=== PATIENT | male | born 1965 | race Two or more races ===

== ENCOUNTER 2024-11-10 22:24 | Emergency (ER) | payer MEDICARE, OTHER ==
[~2024-11-10] VITALS: Ht 185.4 cm; Wt 106.0 kg
--- NOTE | 2024-11-10 23:15 | ED.PDOC ---
SOB-HPI HPI Comments Vitals: temperature of 98.4F, pulse rate of 70, respiratory rate of 20, blood pressure of 134/79, and a SpO2 of 97%RA. PMHx: denies PSHx: CABG, right knee and hip Sx HPI: Poor Historian. 59-year-old male presents to emergency department for evaluation of productive cough with bloody phlegm. This happened about 5 times a day. No significant blood loss. Patient is not on any blood thinners. Denies any other associated symptoms. Patient has been having a cough for about three weeks. He was evaluated for this at a different facility and they found everything normal with him. He is scheduled for a CT scan of the chest on the 12th of this month. REVIEW OF SYSTEMS: CONSTITUTIONAL: Denies acute: fever, diaphoresis, chills, generalized weakness. HEAD: Denies acute: headache, photophobia Eyes: Denies acute: Double vision, vision loss, eye pain, eye discharge. EARS: Denies acute: tinnitus, hearing loss, ear discharge, ear pain, THROAT: Denies acute: sore throat, swelling, difficulty swallowing , pain with swallowing, change in voice. NECK: Denies acute: neck pain, neck swelling, stiff neck. HEART: Denies acute : chest pain, palpitations, LUNGS: Denies acute: SOB, wheezing, ABDOMEN: Denies acute: abdominal pain, Nausea, Vomiting, diarrhea, melena , hematemesis, hematochezia SKIN: Denies acute: rash, redness, lesions, itchiness. EXTREMITIES: Denies acute: calf pain, numbness, tingling, weakness, denies pain in extremity. Denies acute: Low back pain. Neuro: Denies acute: focal neurological deficit, motor or sensory focal neurological deficit, tremors, seizure like activity, confusion, dizziness, change in mental status, loss of bowel or bladder function, cauda equina like symptoms. : Denies acute: dysuria, hematuria, flank pain, increase in urinary frequency. PSYCH: Denies acute: hallucination, suicidal ideation, homicidal ideation. PHYSICAL EXAM: General: no acute distress, awake and alert. Head: normocephalic, atraumatic. Neck: supple, trachea is midline, no swelling. Throat: Normal phonation. No evidence of bleeding in the posterior pharynx. No obstruction, no erythema, no exudates, no swelling. Eyes:, no erythema, no purulent discharge, no proptosis, no icterus. Heart: regular rate, regular rhythm, no significant murmur appreciated. Lungs: no apparent respiratory distress, Able to speak in full sentences. No wheezing, no rhonchi, no crackles. No stridors Clear to auscultation bilaterally. Abdomen: non tender to palpation, non distended, soft, no guarding, no rebound, + bowel sounds. Neuro: Awake, Alert, oriented to name, self, situation, follows commands GCS=15. Speech is normal. Skin: no petechia, no purpura, no cyanosis, non-pale, not jaundice. Lower extremities: --no - Pitting edema no deformity, no focal swelling, no calf TTP. Makes eye contact. moves all four extremities. Face: no apparent facial droop. Ambulating in the ED independently. Chief Complaint: Cough Time Seen by MD: 23:10 Reviewed notes: Nurses Notes, Medications, Allergies Information Source: Patient Mode of Arrival: Ambulatory Past Medical History PAST MEDICAL HISTORY: Denies Surgical History: CABG Surgical History (Other): right hip and knee Sx Family History Family History: Unknown Social History Smoker: Non-Smoker Alcohol: Denies ETOH Use Drugs: Denies Drug Use Lives In: Home Was a procedure done? Was a procedure done?: No Differential Dx Differential Diagnosis: Bronchitis, CHF, COPD, Myocardial infarction, Pneumonia, Pneumothorax, Pulmonary Embolism, URI, Other (Lung abscess, viral infection,) X-Ray, Labs, Meds, VS Vital Signs Date Time Temp Pulse Resp B/P (MAP) Pulse Ox O2 Delivery O2 Flow Rate FiO2 11/11/24 05:30 98.7 60 18 138/81 (100) 97 98.7 11/11/24 01:04 Room Air* 0 21 11/10/24 22:42 64 11/10/24 22:40 98.4 70 20 134/79 (97) 97 Lab Test 11/11/24 00:19 11/10/24 23:26 11/10/24 22:50 Range/Units D-Dimer, Quantitative 1.06 H 0.0-0.49 mg/L FEU Sodium Level 140 136-145 mmol/L Potassium Level 3.9 3.5-5.1 mmol/L Chloride Level 105 98-107 mmol/L Carbon Dioxide Level 25 20-31 mmol/L Anion Gap 10 5-15 Blood Urea Nitrogen 20 9-23 mg/dL Creatinine 1.40 H 0.700-1.30 mg/dL Glomerular Filtration Rate Calc 58 >90 mL/min BUN/Creatinine Ratio 14.3 10.0-20.0 Serum Glucose 95 74-106 mg/dL Calcium Level 10.2 8.7-10.4 mg/dL Total Bilirubin 0.4 0.2-1.0 mg/dL Aspartate Amino Transferase (AST) 16 13-40 U/L Alanine Aminotransferase (ALT) 21 7-40 U/L Alkaline Phosphatase 114 46-116 U/L Troponin I High Sensitivity 5 5 </=54 ng/L B-Type Natriuretic Peptide 66.18 0-100 pg/mL Total Protein 7.1 5.7-8.2 g/dL Albumin 4.3 3.2-4.8 g/dL White Blood Count 11.7 H 4.4-10.8 10^3/uL Red Blood Count 4.58 4.5-5.90 10^6/uL Hemoglobin 13.6 13.5-17.5 g/dL Hematocrit 41.1 41.0-53.0 % Mean Corpuscular Volume 89.7 80.0-100.0 fL Mean Corpuscular Hemoglobin 29.8 28.0-32.0 pg Mean Corpuscular Hemoglobin Concent 33.2 32.0-36.0 g/dL Red Cell Distribution Width 13.4 11.8-14.3 % Platelet Count 272 140-450 10^3/uL Mean Platelet Volume 7.7 6.9-10.8 fL Neutrophils (%) (Auto) 69.5 37.0-80.0 % Lymphocytes (%) (Auto) 18.0 10.0-50.0 % Monocytes (%) (Auto) 6.4 0.0-12.0 % Eosinophils (%) (Auto) 4.8 0.0-7.0 % Basophils (%) (Auto) 1.3 0.0-2.0 % Neutrophils # (Auto) 8.2 1.6-8.6 10 ^3/uL Lymphocytes # (Auto) 2.1 0.4-5.4 10 ^3/uL Monocytes # (Auto) 0.7 0-1.3 10 ^3/uL Eosinophils # (Auto) 0.6 0-0.8 10 ^3/uL Basophils # (Auto) 0.1 0-0.2 10 ^3/uL Nucleated Red Blood Cells 0.0 % Prothrombin Time 11.0 9.3-11.8 sec Prothrombin Time INR 1.04 0.9-1.15 Activated Partial Thromboplast Time 23.2 L 24.5-34.5 SEC Lactic Acid Level 0.7 0.4-2.0 mmol/L Influenza Type A Antigen Negative Negative Influenza Type B Antigen Negative Negative SARS-CoV-2 Antigen (Rapid) Negative NEGATIVE Time of 1ST Reevaluation: 23:10 Reevaluation 1ST: Unchanged Time of 2ND Reevaluation: 19:25 (An addendum was made to the CT angio of the chest that is specifically states that patient has no pulmonary embolus. I spoke with the radiologist at least once. Patient was given a copy of the CT scan report for follow up.) Patient Education/Counseling: Diagnosis, Treatment Family Education/Counseling: No Family Present Comments Patient presented with the above HPI. Hemoptysis workup was initiated. patient was found with the above mentioned diagnosis. the following medications were ordered: n/a the following tests were ordered: CMP, CBC, UA, EKG, Influenza A&B and Covid19 antigen tests, troponin, lactic acid, prothrombin, PTPTT, BNP, CXR Patient ED course and VS have been stabilized. Patient has been reassessed in the ED and remained in a stable condition. Pertinent incidental findings were discussed with the patient and/or family. Patient/family voices understanding and is agreeable with plan. Patient has been observed in the ED adequate length of time to insure improvement/stability. Escalation of care considered: Consideration of escalation to observation or admission Patient was DISCHARGED home in a stable condition. All the reports of any imaging studies that were ordered by myself were reviewed by myself. I discussed the CT scan report with the radiologist on the phone. He said he will make an addendum. He said there is no PE. Note from ED medical radiation dosimetrist Elijah Guido at 0530: Tasked to f/u with addendum status. From [employer] system, was not able to locate it. Contacted [facility] and was connected and spoke to another radiologist by the name of Dr. Ramirez due to previous radiologist that was conversed with being unavailable. Was told by Dr. Ramirez on initial addendum was completed and explicitly states on no PE being found amidst being unable to view it on my end. Obtained addendum from in-house radiology team via [id number] online portal. Will make a copy and attached to patient's discharge paperwork. Departure 1 Departure Time of Disposition: 03:24 Impression: Primary Impression: Hemoptysis Disposition: HOME / SELF CARE / HOMELESS Condition: Stable Additional Instructions: Additional discharge instructions: You MUST follow-up with your primary care/family doctor in 1 to 2 days. If you are unable to see your primary care/family doctor, please return to our emergency room for re-assessment and re-evaluation in 1 to 2 days. Return to the emergency room here in our facility or to the nearest ER [facility] if your symptoms change or worsen. CONSULTATIONS: you MUST Follow-up for consultation as soon as possible with: -pulmonology in 1-2 days. Please call for appointment. You MUST call the consultants office yourself to make an appointment. You may need to arrange that through your insurance and/or your primary/family doctor. If you are unable to see the philatelic consultant in 1 to 2 days, you must return to our emergency room (or any other ER of your choice) for re-assessment and re- evaluation. Adequate fluid hydration. Below is a copy of your radiological report for follow up: [place] [id number] Ph: [phone] DIAGNOSTIC IMAGING Diagnostic Imaging Report : [id number] Signed PATIENT: IMAN LEMON ACCT: [id number] UNIT: [id number] : 1965 LOC: ER ROOM / BED: / AGE / SEX: 59 / M ADM STATUS: REG ER SERVICE 0003 ORDERING PHYSICIAN: VEE AARON DO PROCEDURE(s): CTACH - CT ANGIO CHEST CONTRAST REASON: Hemoptysis ORDER NUMBER(s): [id number], ACCESSION NUMBER(s): [id number] Procedure: CT CT ANGIO CHEST CONTRAST Reason for study/Clinical History: Hemoptysis Comparison Study: None available at time of dictation. Exam Date: 11/11/2024 01:13 AM TECHNIQUE: Multidetector CT of the chest was performed from the lung apices to the upper abdomen without the use of intravenous contract. Axial, coronal and sagittal multiplanar reformats were performed. MIP imaging was performed. Radiation Dose Information: CT Dose: CTDI volume is 20.98 mGy. Dose-length product is 901.79 mGy*cm The dose indicators for CT are the volume Computed Tomography (CT) Dose Index (CTDIvol) and the Dose Length Product (DLP), and are measured in units of mGy and mGy-cm, respectively. These indicators are not patient dose, but values generated from the CT scanner acquisition factors. The report includes radiation exposure data for exposures received during this examination. FINDINGS: Lower neck: Normal thyroid. Lungs: No focal consolidation, pleural effusion or pneumothorax. [place] dependent change and scattered streaky atelectasis is noted in the lower lobes. Calcified granulomas noted in the posterior aspect of the left lower lobe. Heart/Vascular Structures: Normal heart size. No pericardial effusion. Post aortic valvuloplasty. Lymph Nodes: No adenopathy Pleura: No pleural effusion or significant pneumothorax. Musculoskeletal: The patient is post sternotomy. Degenerative changes are noted in the bones. Soft tissues: Normal. Upper abdomen: Limited portions of the upper abdomen are unremarkable. IMPRESSION: 1. No acute intrathoracic abnormality. Radiation optimization: All CT scans at this facility use at least one of these dose optimization techniques: automated exposure control mA and/or kV adjustment per patient size (includes targeted exams where dose is matched to clinical indication) or iterative reconstruction. ATED BY: RAYMOND MAYORGA MD DICTATED DATE/TIME: 11/11/24314 SIGNED BY: RAYMOND MAYORGA MD SIGNED DATE/TIME: 11/11/24314 CC: Discharged With: Self Critical Care Note Critical Care Time?: No Heart Score Heart Score: Heart Score Response (Comments) Value History N/A 0 EKG N/A 0 Age N/A 0 Risk Factors N/A 0 Troponin N/A 0 Total 0 I personally scribed for VEE AARON DO ([email or web address]) on 11/10/24 at 23:15. Electronically submitted by Elijah Guido ([email or web address]). I personally scribed for VEE AARON DO ([email or web address]) on 11/10/24 at 23:23. Electronically submitted by Elijah Guido ([email or web address]). I personally scribed for VEE AARON DO ([email or web address]) on 11/11/24 at 05:32. Electronically submitted by Elijah Guido ([email or web address]). VEE AARON DO Nov 10, 2024 23:15
[2024-11-10 23:40] LABS: Eosinophils # (auto) 0.6 10 ^3/uL (0-0.8); Mean Corpuscular Volume 89.7 fL (80.0-100.0); White Blood Cell 11.7 10^3/uL (4.4-10.8)
[2024-11-10 23:42] LABS: Basophils # (auto) 0.1 10 ^3/uL (0-0.2); Basophils % (auto) 1.3 % (0.0-2.0); Eosinophils % (auto) 4.8 % (0.0-7.0); Hematocrit 41.1 % (41.0-53.0); Hemoglobin 13.6 g/dL (13.5-17.5); Lymphocytes # (auto) 2.1 10 ^3/uL (0.4-5.4); Mean Corpuscular Hemoglobin 29.8 pg (28.0-32.0); Mean Corpuscular Hgb Conc. 33.2 g/dL (32.0-36.0); Monocytes # (auto) 0.7 10 ^3/uL (0-1.3); Monocytes % (auto) 6.4 % (0.0-12.0); Neutrophils # (auto) 8.2 10 ^3/uL (1.6-8.6); Neutrophils % (auto) 69.5 % (37.0-80.0); Platelet Count (auto) 272 10^3/uL (140-450); Red Blood Cells 4.58 10^6/uL (4.5-5.90); Red Cell Distribution Width 13.4 % (11.8-14.3)
[2024-11-10 23:42] LABS: COVID19 ANTIGEN SOFIA FIA NEGATIVE (NEGATIVE); Rapid Influenza A Negative (Negative); Rapid Influenza B Negative (Negative)
--- NOTE | 2024-11-10 23:54 | DVH ---
CHEST RADIOGRAPH Indication: Hemoptysis Technique: Single frontal view of the chest was obtained Comparison: None FINDINGS: Lines and Tubes: Sternal wire sutures in place. Atrial appendage clip visualized. Lungs: Prominent bronchovascular markings in the right lower lung field. Findings may represent atele ctasis developing infiltrate or chronic disease. Pleura: No effusion. No pneumothorax. Cardiomediastinal contours: Unremarkable Bones: No acute osseous abnormality. IMPRESSION: 1. Postop changes from a thoracotomy with atrial appendage clip in place. 2. Prominent bronchovascular markings in the right base. May represent atelectasis developing infiltr ate or chronic disease. HS:Y
[2024-11-10 23:55] LABS: INR 1.04 (0.9-1.15); Partial Thromboplastin Time 23.2 SEC (24.5-34.5)
--- NOTE | 2024-11-11 00:41 | ECG ---
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
[2024-11-11] MEDS: IOHEXOL 350 MG/ML 100ML IJ ONE (01:02)
[2024-11-11 01:07] LABS: Alanine Aminotransferase 21 U/L (7-40); Albumin 4.3 g/dL (3.2-4.8); Alkaline Phosphatase 114 U/L (46-116); Anion Gap 10 (5-15); Aspartate Aminotransferase 16 U/L (13-40); BUN/Creatinine Ratio 14.3 (10.0-20.0); Bilirubin, Total 0.4 mg/dL (0.2-1.0); Blood Urea Nitrogen 20 mg/dL (9-23); Calcium 10.2 mg/dL (8.7-10.4); Carbon Dioxide 25 mmol/L (20-31); Chloride 105 mmol/L (98-107); Glucose 95 mg/dL (74-106); Potassium 3.9 mmol/L (3.5-5.1); Sodium 140 mmol/L (136-145); Total Protein 7.1 g/dL (5.7-8.2)
--- NOTE | 2024-11-11 03:18 | DVH ---
Procedure: CT CT ANGIO CHEST CONTRAST Reason for study/Clinical History: Hemoptysis Comparison Study: None available at time of dictation. Exam Date: 11/11/2024 01:13 AM TECHNIQUE: Multidetector CT of the chest was performed from the lung apices to the upper abdomen with out the use of intravenous contract. Axial, coronal and sagittal multiplanar reformats were performed . MIP imaging was performed. Radiation Dose Information: CT Dose: CTDI volume is 20.98 mGy. Dose-length product is 901.79 mGy*cm The dose indicators for CT are the volume Computed Tomography (CT) Dose Index (CTDIvol) and the Dose Length Product (DLP), and are measured in units of mGy and mGy-cm, respectively. These indicators are not patient dose, but values generated from the CT scanner acquisition factors. The report includes radiation exposure data for exposures received during this examination. FINDINGS: Lower neck: Normal thyroid. Lungs: No focal consolidation, pleural effusion or pneumothorax. [place] dependent change and scatter ed streaky atelectasis is noted in the lower lobes. Calcified granulomas noted in the posterior aspec t of the left lower lobe. Heart/Vascular Structures: Normal heart size. No pericardial effusion. Post aortic valvuloplasty. Lymph Nodes: No adenopathy Pleura: No pleural effusion or significant pneumothorax. Musculoskeletal: The patient is post sternotomy. Degenerative changes are noted in the bones. Soft tissues: Normal. Upper abdomen: Limited portions of the upper abdomen are unremarkable. IMPRESSION: 1. No acute intrathoracic abnormality. Radiation optimization: All CT scans at this facility use at least one of these dose optimization katherin hniques: automated exposure control mA and/or kV adjustment per patient size (includes targeted exam s where dose is matched to clinical indication) or iterative reconstruction.
[2024-11-11 05:30] VITALS: BP 138/81; PULSE 60; RESP 18; TEMP 98.7; O2SAT 97
== END 2024-11-11 06:02 | disposition home or self-care (01) ==
LOC: ER 22:24
DX: R04.2 Hemoptysis (principal); R05.8 Other specified cough; R06.02 Shortness of breath; Z20.822 Contact with and (suspected) exposure to COVID-19; Z95.1 Presence of aortocoronary bypass graft
CPT/HCPCS: 36415; 71045; 71275; 80053; 83605; 83880; 84484; 85025; 85379; 85610; 85730; 87426; 87804; 93005; 99285; Q9967